=== PATIENT | male | born 1940 | race Caucasian/White ===

== ENCOUNTER 2020-10-27 01:28 | Emergency (ER) | payer MEDICARE, SELFPAY ==
--- NOTE | ~2020-10-27 | CT_ITS ---
EXAMINATION: CT brain wo con DATE: 10/27/2020 07:15 INDICATION: Unresponsiveness. Altered mental status. TECHNIQUE: Computed tomography (CT) of the head was performed without intravenous contrast. The mA wa s adjusted according to patient size. Iterative reconstruction technique was employed. Exam dose: 68 1.00 mGy-cm total exam DLP. COMPARISON: None FINDINGS: There is a very large intraparenchymal acute hemorrhage centered in the region of the left basal ganglia, measuring at least 6.4 x 5.7 x 4.7 cm. There is at least 10 mm left to right midline s hift. There is effacement of the lateral ventricles, especially on the left and extensive blood in th e lateral, third as well as fourth ventricles. There is hydrocephalus. There is diminished attenuation cerebral white matter, likely due to chronic small vessel ischemic ch anges. Bilateral carotid siphon internal carotid artery calcifications are noted. No subdural or epidural hematoma is detected. The orbits are unremarkable. There is patchy soft tissue thickening of the ethmoid air cells bilaterally. A small fluid level in t he right sphenoid sinus. The paranasal sinuses and mastoid air cells are otherwise unremarkable. No fracture or bone destruction of the cranial vault. 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 Reviewed, dictated and finalized at [facility]. T MAN IMPRESSION: Very large left basal ganglia hemorrhage with intraventricular rup ture, at least 10 mm left to right midline shift
--- NOTE | 2020-10-27 01:59 | ECG_ITS ---
Measurements Intervals [place] Rate: 70 P: MN: 0 QRS: 123 QRSD: 216 T: 236 QT: 529 QTc: 572 Interpretive Statements ELECTRONIC VENTRICULAR PACEMAKER BASELINE ARTIFACT- I, II, III, AVR, AVL, AVF, V1-V6 NO FURTHER INTERPRETATION IS POSSIBLE ATYPICAL ECG Electronically Signed On 10-27-2020 8:59:17 [employer] by Abraham Mcdaniels D.O.
[2020-10-27 02:15] VITALS: PULSE 70; O2SAT 95
[2020-10-27 03:55] VITALS: PULSE 76; O2SAT 94
[2020-10-27 08:15] LABS: Hemoglobin 14.1 g/dL (12.4-15.3); Mean Corpuscular HGB Conc 32.8 g/dL (32.0-36.0); Mean Corpuscular Hemoglobin 30.7 pg (27.0-31.0); Mean Corpuscular Volume 93.7 fL (78.0-102.0); Red Blood Count 4.59 M/mm3 (4.70-6.10); White Blood Count 4.3 K/mm3 (4.8-10.8)
[2020-10-27 08:16] LABS: Basophils Percent Auto 0.7 % (0.0-1.0); Eosinophils Percent Auto 7.7 % (1.0-6.0); Immature Granulocyte Absolute 0.02 K/mm3 (0.00-0.00); Immature Granulocyte Percent A 0.5 % (0.0-0.0); Immature Platelet Fraction Pct 3.6 % (1.0-7.0); Lymphocytes Absolute Auto 0.42 K/mm3 (1.10-4.50); Lymphocytes Percent Auto 9.8 % (18.0-42.0); Mean Platelet Volume 11.2 fl (8.7-11.0); Monocytes Percent Auto 5.8 % (2.0-11.0); Neutrophils Absolute Auto 3.2 K/mm3 (1.7-7.2); Neutrophils Percent Auto 75.5 % (50.0-70.0); Platelet Count Result 81 K/mm3 (150-420); Red Cell Distribution Width 13.9 % (11.6-14.4)
[2020-10-27 08:17] LABS: Basophils Absolute Auto 0.03 K/mm3 (0.00-0.10); Eosinophils Absolute Auto 0.33 K/mm3 (0.02-0.50); Monocytes Absolute Auto 0.25 K/mm3 (0.10-0.90)
[2020-10-27 08:19] LABS: Anion Gap 11 mmol/L (8-16); Blood Urea Nitrogen 27 mg/dL (7-18); Carbon Dioxide 27 mmol/L (21-32); Chloride 107 mmol/L (98-108); Estimated Glomerular Filt Rate 33; Glucose 212 mg/dL (70-99); Osmolality Calculated 311 mOsm/kg (285-295); Potassium 3.4 mmol/L (3.5-5.1); Sodium 145 mmol/L (136-145); Troponin I 129.7 ng/L (0.00-60.4)
[2020-10-27 08:20] LABS: Alanine Aminotransferase 26 U/L (16-63); Albumin Level 3.4 g/dL (3.4-5.0); Alkaline Phosphatase 68 U/L (46-116); Aspartate Amino Transferase 32 U/L (15-37); BNP 334 pg/mL (0-100); Bilirubin,Total 0.5 mg/dL (0.00-1.00); Calcium 8.2 mg/dL (8.5-10.1); Creatine Kinase 339 U/L (39-308); Total Protein 7.3 g/dL (6.4-8.2)
[2020-10-27 08:23] LABS: Partial Thromboplastin Time 32.7 SEC (23.90-30.70)
[2020-10-27 08:24] LABS: Base Excess ABG -2.6 mmol/L (0-2); Oxygen Content ABG 20.3 %vol (16.0-22.0); Oxygen Saturation ABG 96.9 % (95-97); Oxyhemoglobin 95.8 % (94-100); PO2 ABG 95.6 mmHg (75-85); pH ABG 7.35 (7.35-7.45)
[2020-10-27 08:29] LABS: Device VENTILATOR; Fractional Inspired Oxygen 100 %
[2020-10-27 08:32] LABS: Arterial Blood Gas Ventilator rate 12 /MIN
[2020-10-27 08:41] LABS: Arterial Blood Gas Vent Mode ASSIST CONTROL
[2020-10-27 08:42] LABS: Arterial Blood Gas PEEP 6 cmH2O
[2020-10-27 08:46] LABS: Arterial Blood Gas Minute Volume 10 LPM
[2020-10-27 08:47] LABS: Arterial Blood Gas Pressure Support 10 cmH2O; Arterial Blood Gas Tidal Volume 478 ml
[2020-10-27 09:21] LABS: Peak Inspiratory Pressure 24 cmH2O
--- NOTE | 2020-11-15 02:45 | ED.AMS ---
HPI - Altered Mental Status General Chief Complaint: Altered Mental Status Time Seen by Provider: 10/27/20 01:30 Source: patient, family and EMS Mode of arrival: EMS History of Present Illness HPI narrative: Patient is brought in by EMS. He had evidently been having of a headache last pm. He was on the couch up until 11pm according to the . Then afterward was feeling weak and not well. Just prior to presentation he appeared to have slurred speech according to the , he evidently fell off the couch. Evidently his realized he was not well and called 911. He was non responsive by the time he was brought in and when I initially saw him. MD complaint: altered mental status and decreased responsiveness Timing confirmed by: spouse Severity: severe Consistency of symptoms: waxing and waning Associated symptoms: denies other symptoms Related Data Allergies Allergy/AdvReac Type Severity Reaction Status Date / Time No Known Allergies Allergy Mild Unverified 06/21/06 10:05 CASHEWS Allergy Severe Rash Uncoded 06/20/06 16:01 NKDA Allergy Mild Uncoded 06/20/06 16:01 Review of Systems Constitutional: Constitutional: Reports no additional constitutional complaints Eyes: Eyes: Reports no additional eye complaints ENT: Reports system reviewed and no additional complaints, except as documented Cardiovascular: Cardiovascular: Reports no additional cardiovascular complaints Respiratory: Respiratory: Reports no additional respiratory complaints Gastrointestinal: Gastrointestinal: Reports no additional gastrointestinal complaints Genitourinary: Genitourinary: Reports no additional male genitourinary complaints Musculoskeletal: Musculoskeletal: Reports no additional musculoskeletal complaints Integumentary/Breasts: Skin/Breast: Reports system reviewed and no additional complaints, except as docu Neurologic: Reports system reviewed and no additional complaints, except as documented Psychiatric: Psychiatric: Reports no additional psychiatric complaints Endocrine: Endocrine: Reports no additional endocrine complaints Hematologic/Lymphatic: Hematologic/Lymphatic: Reports no additional hematologic/lymphatic complaints Allergic/Immunologic: Allergic/Immunologic: Reports no additional allergic/immunologic complaints [facility] Past Medical History Medical History CAD (coronary artery disease) Surgical History Surgical History Aortic valve replaced Mitral valve replaced Family History Family History Mother No problems noted. Social History Social History Smoking status: Never smoker Alcohol intake: never Exam Const: General: no acute distress and alert Orientation/consciousness: patient oriented x3 Limitations: altered mental status HENMT: Head: normal to inspection Ears: external ears normal and TM's normal bilaterally General nose exam: Normal external nose present Face and sinus: normal facial exam Mouth: Yes Normal oral and palatal mucosa present Throat: posterior oropharynx normal Eyes: Conjunctivae: conjunctivae normal Neck: Neck: normal visual inspection Chest: Chest palpation & inspection: normal inspection of the chest Resp: Effort & Inspection: normal respiratory effort Auscultation: clear to auscultation bilaterally Cardio: Rate: regular rate Rhythm: regular rhythm GI: GI Palp: Yes Soft to palpation (nontender) Skin: Other: pale Neuro: Other: Pupils Right 3mm, Left 5mm Both respond sluggishly. Extrem: General: normal to inspection Course Course Emergency Course: This patient was not responsive from the moment he arrived. We quickly moved him to the trauma room as I felt he would likely need to be intubated to control his airway. While I was attempting to intubate him he had
== END 2020-10-27 04:55 | disposition short-term general hospital (02) ==
PROVIDERS: Emergency Provider Emergency Medicine; PCP Family Medicine
DX: I16.0 Hypertensive urgency (principal); I61.5 Nontraumatic intracerebral hemorrhage, intraventricular; Z95.1 Presence of aortocoronary bypass graft; N28.9 Disorder of kidney and ureter, unspecified; Z86.16 Personal history of COVID-19
CPT/HCPCS: 31500; 36415; 36600; 70450; 80053; 82550; 82805; 83880; 84484; 85025; 85055; 85610; 85730; 93005; 96361; 96374; 96375; 96376; 99285; J2250; J3010; J7030; J7060